=== PATIENT | male | born 1985 | race Caucasian/White ===

== ENCOUNTER 2023-01-29 16:49 | Emergency (ER) | payer SELFPAY ==
[~2023-01-29] VITALS: Ht 187.9 cm; Wt 88.5 kg
[2023-01-29] MEDS ORDERED: VIBRA-TAB100 MG PO (18:30)
== END 2023-01-29 18:48 | disposition home or self-care (01) ==
LOC: ED 16:49
DX: A69.20 Lyme disease, unspecified (principal)